=== PATIENT | male | born 1950 | race Caucasian/White ===

== ENCOUNTER 2016-12-14 21:12 | Inpatient (IN) ==
--- NOTE | 2016-12-15 00:12 | Emergency Department Note ---
Disposition Clinical Impression: Pneumonia, Orthostatic hypotension Disposition: Admitted As Inpatient Condition: Good [facility] Provider[facility] - Forms: ED Satisfaction Letter Dizziness HPI - General Chief Complaint: ED Dizziness Stated Complaint: Dizzy / Lightheaded Source: EMS Limitations: no limitations Nursing Notes Reviewed: Yes Vital Signs Reviewed: Yes - History of Present Illness HPI Narrative: Patient comes from the [place] in transfer due to abnormal workup. Per patient report he states his blood pressure dropping when he has stood up. Patient notes he has been vomiting for 3 days. Patient denies fever or chills. Patient does note he has some dizziness when standing and upon ambulation. Patient complains of shortness of breath where he is required more oxygen or the past few days. Patient states he has weaned himself down to 3 L but over the past few days he has had to go to 5 L to feel that he can breathe. Patient denies chest pain denies numbness and tingling. Patient denies dark stools - Related Data Home Medications Medication Instructions Recorded Confirmed Allopurinol [Zyloprim 100 MG] 100 mg PO DAILY 06/10/16 08/24/16 Calcitriol [Rocaltrol] 0.25 mcg PO Q48H 06/10/16 08/24/16 Cholecalciferol (D-3) [Vitamin D] 2,000 unit PO DAILY 06/10/16 08/24/16 Acetaminophen [Tylenol Arthritis] 650 mg PO Q6H PRN 07/25/16 08/24/16 Artificial Tears SOLN [Akwa Tears] 2 drop BOTH EYES BID PRN 07/25/16 08/24/16 Aspirin 81 mg PO DAILY 07/25/16 08/24/16 Metoprolol XL (24 HR) Succ [Toprol 100 mg PO DAILY 07/25/16 08/24/16 Xl] Pantoprazole Sodium [Protonix] 40 mg PO DAILY 07/25/16 08/24/16 Insulin ASPART [NovoLOG] 12 unit SQ TIDWM 08/24/16 08/24/16 Petrolatum,White [Aloe [place]] 1 appl TP BID 08/24/16 08/24/16 Previous Rx's Medication Instructions Recorded Budesonide Neb [Pulmicort Neb] 0.5 mg IH BIDR inhsol 07/08/16 Atorvastatin [Lipitor] 80 mg PO HS #30 tablet 07/26/16 Clopidogrel Bisulfate [Plavix] 75 mg PO DAILY #30 tablet 07/26/16 Acetylcysteine 10% 2 ml IH [id number] inhsol 09/03/16 Amlodipine [Norvasc] 5 mg PO DAILY tablet 09/03/16 Citalopram [CeleXA] 20 mg PO DAILY tablet 09/03/16 Docusate [Colace] 100 mg PO BID PRN #0 capsule 09/03/16 Enoxaparin [Lovenox] 40 mg SQ DAILY syringe 09/03/16 Furosemide [Lasix] 40 mg PO DAILY #0 09/03/16 Gabapentin [Neurontin] 300 mg PO DAILY #0 09/03/16 GuaiFENesin ER [Mucinex] 1,200 mg PO BID tbbp.12hr 09/03/16 Insulin Glargine [Lantus] 60 unit SQ DAILY #0 09/03/16 Ipratropium Neb [Atrovent Neb] 0.5 mg IH [id number] inhsol 09/03/16 Isosorbide MONOnitrate (24 HR) 60 mg PO DAILY tab.er.24h 09/03/16 [Imdur] LORazepam [Ativan] 1 mg PO Q4HR PRN #20 tablet 09/03/16 Levalbuterol Neb [Xopenex Neb] 0.63 mg IH [id number] vial.neb 09/03/16 Nicotine Patch [Nicoderm] 21 mg TD DAILY PRN #0 patch.td24 09/03/16 OxyCODONE Immed Rel [Roxicodone 5 10 mg PO Q4HR PRN #15 tablet 09/03/16 MG] PredniSONE 60 mg PO AD #120 tablet 09/03/16 Allergies Allergy/AdvReac Type Severity Reaction Status Date / Time cholecalciferol (vitamin D3) Allergy Difficulty Verified 08/26/16 19:16 Breathing NSAIDS (Non-Steroidal Allergy Difficulty Verified 08/26/16 19:16 Anti-Inflamma Breathing All systems ED: reviewed and negative except as stated. Past Medical History - Past Medical History Source: patient Medical history: Reports: arthritis, asthma, cancer, CHF, COPD, coronary artery disease, diabetes, GERD, GI bleed, hyperlipidemia, hypertension, malignancy, myocardial infarction, osteoporosis, peripheral artery disease, renal disease, TIA, other Surgical history: Reports: cancer surgery Psychiatric history: Reports: anxiety, depression, prior suicide attempt, previous psychiatric hospitalization, other - Social History Smoking Status: Former smoker Smokeless Tobacco Status: No Alcohol use: Reports: none Drug use: Reports: none Physical Exam - General Limitations: no limitations General appearance: alert, in no apparent distress - Head Head exam: atraumatic, normocephalic, normal inspection - Eye Eye exam: Present: normal appearance, PERRL, EOMI - ENT ENT exam: normal exam, normal oropharynx, mucous membranes moist - Neck Neck exam: Present: normal inspection, full ROM, trachea midline - Chest Chest inspection: Present: normal inspection, symmetric chest wall rise - Respiratory Respiratory exam: Present: other (Decreased air movement in the left lung field when compared to the right. No wheezing noted) - Cardiovascular Cardiovascular exam: Present: regular rate, normal rhythm, normal heart sounds - Abdominal Exam Abdominal exam: Present: soft, Non-Tender. Absent: tenderness, distention, guarding, rebound, rigidity - Extremities Exam Extremities exam: Present: normal inspection, pedal edema. Absent: tenderness - Back Exam Back exam: Present: normal inspection, full ROM. Absent: tenderness - Neurological Exam Neurological exam: Present: alert, oriented X3 - Psychiatric Psychiatric exam: Present: normal affect, normal mood - Skin Skin exam: Present: warm, dry, intact, normal color Course Vital Signs Temperature 97.8 F 12/14/16 21:24 Pulse Rate 89 12/14/16 21:24 Respiratory Rate 14 12/14/16 21:24 Blood Pressure 148/79 12/14/16 21:24 O2 Sat by Pulse Oximetry 100 12/14/16 21:24 Temperature 97.8 F 12/14/16 21:24 Pulse Rate 92 12/14/16 21:36 Respiratory Rate 14 12/14/16 21:24 Blood Pressure 138/77 12/14/16 21:36 O2 Sat by Pulse Oximetry 100 12/14/16 21:32 Oxygen Delivery Oxygen Delivery Room Air Dizziness - Differential Diagnosis Likely: benign paroxysmal positional vertigo, orthostatic hypotension, cerebrovascular accident, transient cerebral ischemia - Lab Data Lab results reviewed: Yes I reviewed the patient's lab results. Lab results narrative: Labs were performed by outside facility. CBC showed a white cell count of 17.5 , hemoglobin of 10.3, hematocrit of 32.4, platelets of 209. Segmented cells were 88.9, chemistry panel significant for sodium 134, potassium of 4.6, chloride of 97, bicarbonate of 28, glucose of 277, BUN of 54, creatinine of 2.46 , troponin was negative at 0.04, BNP was 927. Chest x-ray was performed and interpreted by radiology as right pleural effusion with associated extensive right basilar opacities appears stable to slightly increase in comparison to prior. The left lung remains relatively well aerated with minimal atelectasis versus scar at the left lung base. No pneumothorax Lab Results 12/14/16 Range/Units 23:53 Lactic Acid 1.0 (0.5-2.2) mmol/L - Radiology Data Radiology results reviewed: Yes I reviewed the patient's radiology results. - EKG Data EKG attestation: Yes I reviewed and interpreted this EKG. EKG results narrative: EKG was performed and interpreted by myself as normal sinus rhythm normal axis no acute abnormality noted Critical Care Time Total Critical Care Time: 30 Attestation: Critical care performed: Time is exclusive of separately billable procedures. Time includes: direct patient care, patient reassessment, coordination of patient care, interpretation of data (laboratory data, radiology data, and respiratory data), review of patient's medical records, medical consultation and documentation of patient care. Procedures included in critical care time: Procedures excluded from critical care time:
[2016-12-15] MEDS ORDERED: Piperacillin/Tazobactam 3.375 GM in D5% in Water (Mini-Bag+) 100 ML IVPB ONE (00:56)
[2016-12-15] MEDS ORDERED: Furosemide 40 MG/4 ML VIAL IVP ONE (00:57)
[2016-12-15] MEDS ORDERED: Vancomycin 1,500 MG in D5% in Water 250 ML IVPB ONE (00:57)
[2016-12-15] MEDS ORDERED: 0.9 % Sodium Chloride 250 ML IV ONE (01:11)
[2016-12-15] MEDS ORDERED: Acetaminophen 325 MG TABLET PO PRN (05:58)
[2016-12-15] MEDS ORDERED: Naloxone 0.4 MG/ML INJ IVP PRN (05:58)
[2016-12-15] MEDS ORDERED: Ondansetron 4 MG/2 ML VIAL IVP PRN (05:58)
[2016-12-15] MEDS ORDERED: 0.9 % Sodium Chloride 1,000 ML IVC SCH (06:00)
[2016-12-15] MEDS ORDERED: D5% in Water 1,000 ML IV PRN (06:03)
[2016-12-15] MEDS ORDERED: Dextrose Gel 15 GM PO PRN ×2 (06:03)
[2016-12-15] MEDS ORDERED: *HR* Dextrose 50 % in Water (Syg) 50 ML SYRINGE IVP PRN (06:03)
[2016-12-15] MEDS ORDERED: Hydrocortisone Sodium Succ 100 MG/2 ML VIAL IVP ONE (06:06)
--- NOTE | 2016-12-15 06:24 | Internal Med History&Physical ---
Date of Encounter: 12/15/16 Time of Encounter: 06:07 Assessment and Plan (1) Near syncope Current visit: Yes Status: Acute 1. Will cycle troponins and check Carotid Dopplers. 2. ECHO performed recently show normal EF% 3. Confirm and adjust home meds as appropriate as they nay contribute to near syncope. 4. Monitor glucose levels closely. (2) Dehydration Current visit: Yes Status: Acute 1. Will hydrate with IVF and monitor I/O, daily weights closely. 2. Wean off IVF soon when able to hydrate orally. (3) Viral gastroenteritis Current visit: Yes Status: Acute 1. Supportive measures with IVF, nausea control. 2. Oral hydration as able. (4) CKD (chronic kidney disease) stage 4, GFR 15-29 ml/min Current visit: Yes Status: Chronic 1. Monitor renal function. 2. Hold diuretics and verify home meds. 3. Consult nephrology to assist in care. (5) Diabetes mellitus Current visit: No Status: Chronic 1. Monitor glucose closely and use SSI. 2. Verify home meds and adjust insulin as necessary to maintain glucose control. Qualifiers: Diabetes mellitus type: type 2 Diabetes mellitus complication status: with kidney complications Diabetes mellitus complication detail: with chronic kidney disease Diabetes mellitus salvage determiner insulin use: with salvage determiner use Chronic kidney disease stage: stage 4 (severe) Qualified Code(s): E11.22 - Type 2 diabetes mellitus with diabetic chronic kidney disease; N18.4 - Chronic kidney disease, stage 4 (severe); Z79.4 - detention (current) use of insulin (6) DVT prophylaxis Current visit: Yes Status: Acute 1. Heparin SQ. Internal Medicine - H&P: HPI Chief complaint: near syncope; vomiting; weak Admitted From: Emergency Dept Plans for Post Hospital Care: Home History of present illness: Mr. Tang is a 66 year old male who presented to the [place] urgent care late last night with complaints of weakness, vomiting, and near syncope. He had workup performed there and was transferred to the ER for further workup and admission. Patient was seen and evaluated in the ER and admitted to hospitalist service thereafter. Workup in the ER was minimal and included an EKG lactic acid level. Lactic acid was 1.0 and EKG was essentially normal. Much of his labs performed at the [place] urgent care prior to transfer. After initial brief workup in the ER, patient was admitted to the hospitalist service. Upon my assessment of the patient, he was sleeping but easily arousable. He appears in no acute distress. I questioned him about his near syncopal spells and he states he has been feeling dizzy and lightheaded for the last 3 days at home. He has not had any true syncopel, however. He states his symptoms are worse when he stands and walks and improves when he lies flat. Symptoms started about 3 days ago. He has been complaining of some nausea and protracted vomiting and low-grade chills and fevers for last 5-6 days. He denies any diarrhea, but he has had some body aches. He has been exposed to multiple contacts. He denies any dysrhythmia history. He denies any current or recent chest pain, shortness breath, or dyspnea on exertion. Regarding his diabetes, he does not check his glucose very frequently and has had "ups and downs lately." He denies any true profound hypoglycemia, but he notes he has had several glucose readings in the 60s. He denies any true syncope. Past Med Surg Social Fam HX - Past Medical History Source: patient, old records reviewed Medical history: arthritis, asthma, cancer, CHF, COPD, coronary artery disease, diabetes, GERD, GI bleed, hyperlipidemia, hypertension, malignancy, myocardial infarction, osteoporosis, peripheral artery disease, renal disease, TIA Psychiatric history: anxiety, depression, prior suicide attempt, previous psychiatric hospitalization, other - Past Surgical History Surgical History: cancer surgery (lung ) - Social History Smoking Status: Former smoker Smokeless Tobacco Status: No Alcohol use: none Drug use: none Current living situation: Home, With Family Activity Level: Independent ambulation Recent Out of Country Travel Within the Last 8 Weeks: No - Family History Mother Living Status: Hx Family Cardiac Disorders: No Hx Family Respiratory Disorders: No Father Living Status: Hx Family Cardiac Disorders: No Hx Family Respiratory Disorders: Yes Internal Medicine - H&P: Meds Allopurinol [Zyloprim 100 MG] 100 mg PO DAILY 06/10/16 [History] Calcitriol [Rocaltrol] 0.25 mcg PO Q48H 06/10/16 [History] Cholecalciferol (D-3) [Vitamin D] 2,000 unit PO DAILY 06/10/16 [History] Budesonide Neb [Pulmicort Neb] 0.5 mg IH BIDR inhsol 07/08/16 [Rx] Acetaminophen [Tylenol Arthritis] 650 mg PO Q6H PRN 07/25/16 [History] Artificial Tears SOLN [Akwa Tears] 2 drop BOTH EYES BID PRN 07/25/16 [History] Aspirin 81 mg PO DAILY 07/25/16 [History] Metoprolol XL (24 HR) Succ [Toprol Xl] 100 mg PO DAILY 07/25/16 [History] Pantoprazole Sodium [Protonix] 40 mg PO DAILY 07/25/16 [History] Atorvastatin [Lipitor] 80 mg PO HS #30 tablet 07/26/16 [Rx] Clopidogrel Bisulfate [Plavix] 75 mg PO DAILY #30 tablet 07/26/16 [Rx] Insulin ASPART [NovoLOG] 12 unit SQ TIDWM 08/24/16 [History] Petrolatum,White [Aloe [place]] 1 appl TP BID 08/24/16 [History] Acetylcysteine 10% 2 ml IH [id number] inhsol 09/03/16 [Rx] Amlodipine [Norvasc] 5 mg PO DAILY tablet 09/03/16 [Rx] Citalopram [CeleXA] 20 mg PO DAILY tablet 09/03/16 [Rx] Docusate [Colace] 100 mg PO BID PRN #0 capsule 09/03/16 [Rx] Enoxaparin [Lovenox] 40 mg SQ DAILY syringe 09/03/16 [Rx] Furosemide [Lasix] 40 mg PO DAILY #0 09/03/16 [Rx] Gabapentin [Neurontin] 300 mg PO DAILY #0 09/03/16 [Rx] GuaiFENesin ER [Mucinex] 1,200 mg PO BID tbbp.12hr 09/03/16 [Rx] Insulin Glargine [Lantus] 60 unit SQ DAILY #0 09/03/16 [Rx] Ipratropium Neb [Atrovent Neb] 0.5 mg IH [id number] inhsol 09/03/16 [Rx] Isosorbide MONOnitrate (24 HR) [Imdur] 60 mg PO DAILY tab.er.24h 09/03/16 [Rx] LORazepam [Ativan] 1 mg PO Q4HR PRN #20 tablet 09/03/16 [Rx] Levalbuterol Neb [Xopenex Neb] 0.63 mg IH [id number] vial.neb 09/03/16 [Rx] Nicotine Patch [Nicoderm] 21 mg TD DAILY PRN #0 patch.td24 09/03/16 [Rx] OxyCODONE Immed Rel [Roxicodone 5 MG] 10 mg PO Q4HR PRN #15 tablet 09/03/16 [Rx] PredniSONE 60 mg PO AD #120 tablet 09/03/16 [Rx] Allergies cholecalciferol (vitamin D3) Allergy (Verified 08/26/16 19:16) Difficulty Breathing NSAIDS (Non-Steroidal Anti-Inflamma Allergy (Verified 08/26/16 19:16) Difficulty Breathing - Constitutional Constitutional: chills, fever(s), no lethargy, no malaise, no night sweats, no weakness - EENT Eyes: no blurry vision, no change in vision Ears: no ear pain, no tinnitus Nose, mouth and throat: no nasal congestion, no sinus pain, no sinus pressure, no sore throat - Cardiovascular Cardiovascular ROS IM: chest pain, lightheadedness, no dyspnea, no dyspnea on exertion, no edema, no orthopnea, no palpitations, no paroxysmal nocturnal dyspnea - Respiratory Respiratory: cough, dyspnea, dyspnea on exertion, no hemoptysis, no wheezing, no chest congestion, no excessive phlegm production, no change in phlegm color - Gastrointestinal Gastrointestinal: no abdominal pain, no diarrhea, no hematemesis, no hematochezia, no melena, no vomiting - Genitourinary Genitourinary ROS male: no dysuria, no flank pain, no hematuria - Musculoskeletal Musculoskeletal ROS IM: muscle cramps, myalgias, no atrophy, no joint swelling - Integumentary Integumentary IM: no rash, no jaundice - Neurological Neurological ROS: dizziness, no confusion, no focal weakness, no frequent falls , no headache(s) - Psychiatric Psychiatric: no anxiety, no depression - Endocrine Endocrine IM: no cold intolerance, no heat intolerance, no polydipsia, no polyuria - Hematologic/Lymphatic Hematologic/Lymphatic: easy bruising, no lymphadenopathy - Allergic/Immunologic Allergic/Immunologic: no wheezing, no GI upset with certain foods - Constitutional Vitals: Temp Pulse Resp BP Pulse Ox 98.1 F 73 20 133/73 97 12/15/16 04:33 12/15/16 04:33 12/15/16 04:33 12/15/16 04:33 12/15/16 04:33 General appearance: Present: cooperative, A&O X 3, pleasant, no acute distress, answers questions appropriately Exam: looks dry - Head Head exam: Present: atraumatic, normal inspection - Expanded Head Exam Head exam expanded: Absent: abrasion, contusion, general tenderness - Eye Eye exam: Present: EOMI, normal appearance, PERRL. Absent: scleral icterus Pupils: Present: normal accommodation - ENT ENT exam: Present: mucous membranes dry, normal exam, normal oropharynx - Neck Neck exam general surgery: Present: full ROM, supple, trachea midline. Absent: lymphadenopathy, tenderness - Respiratory Respiratory exam: Present: CTAB. Absent: accessory muscle use, chest wall tenderness, rales, respiratory distress, rhonchi, wheezes - Cardiovascular Cardiovascular exam: Present: RRR, +S1, +S2. Absent: distant heart sounds, rubs , systolic murmur - GI/Abdominal GI/Abdominal exam: Present: normal bowel sounds, soft. Absent: guarding, hepatomegaly, mass, rebound, splenomegaly, tenderness - Extremities Exam Extremities exam: Present: full ROM, pedal edema (1-2+), warm. Absent: calf tenderness, joint swelling - Back Exam Back exam: Absent: CVA tenderness (L), CVA tenderness (R), rash noted - Neurological Exam Neurological exam: Present: alert, CN II-XII intact, oriented X3, no focal deficits - Psychiatric Psychiatric exam: Present: normal affect, normal mood - Skin Skin exam: Present: dry, warm. Absent: petechiae, rash, vesicles Internal Med - H&P Results - Labs Labs: I reviewed his labs from the [place] urgent care and include the following: White blood cell count 17.5 Hemoglobin 10.3 Hematocrit 32.4 Platelets 209 Sodium 134 potassium 4.6 Chloride 97 Bicarbonate 28 Chloride 97 BUN 54 creatinine 2.46 Troponin 0.04 BNP 927 - EKG Data -: EKG Interpreted by Myself EKG shows normal: sinus rhythm Rate: normal - EKG Data Prior EKG available for review: no
[2016-12-15] MEDS: *HR* Heparin 5,000 UNIT/ML VIAL SQ SCH ×2 (06:38→17:40)
[2016-12-15 07:17] LABS: Basophils % 0.1 %; Eosinophils # 0.1 K/mcL (0.0-0.6); Eosinophils % 0.6 %; Hematocrit 31.1 % (37.5-50.1); Hemoglobin 9.6 g/dL (12.9-16.9); Immature Granulocytes % 1.5 % (0-4); Lymphocytes # 0.5 K/mcL (0.6-4.6); Lymphocytes % 4.4 %; Mean Corpuscular HGB Conc 30.9 g/dL (31.6-35.5); Mean Corpuscular Volume 84.3 fL (83.0-100.0); Mean Platelet Volume 9.7 fL (9.4-12.4); Monocytes # 1.1 K/mcL (0.0-1.3); Monocytes % 9.2 %; Neutrophils # 10.2 K/mcL (1.6-8.9); Platelet Count 178 K/mcL (140-400); Red Blood Count 3.69 M/mcL (4.19-5.50); Red Cell Distribution Width 15.9 % (11.5-14.5); Segmented Neutrophils % 84.2 %
[2016-12-15 07:31] LABS: Albumin 2.1 g/dL (3.5-5.0); Albumin/Globulin Ratio 0.4 (1.1-2.2); Bilirubin,Total 0.5 mg/dL (0.2-1.2); Calcium 9.7 mg/dL (8.6-10.8); Globulin 4.7 g/dL (2.4-3.5); Magnesium 1.4 mg/dL (1.6-2.6); Total Protein 6.8 g/dL (6.0-8.3)
[2016-12-15 07:48] LABS: Hemoglobin A1C 9.1 %; INR 1.2; Prothrombin Time 12.8 Seconds (9.4-12.1)
[2016-12-15 07:51] LABS: Activated Partial Thrombo Time 29.3 Seconds (26.0-36.0)
[2016-12-15] MEDS: Insulin LISPRO 300 UNITS/3 ML VIAL SQ SCH ×4 (08:10→21:30)
[2016-12-15] MEDS: Aspirin 81 MG TAB.CHEW PO SCH (08:10)
[2016-12-15] MEDS ORDERED: Magnesium Sulfate 2 GM in D5% in Water 100 ML IVPB ONE (09:14)
--- NOTE | 2016-12-15 09:40 | Nephrology Consult Note ---
Date of Encounter: 12/15/16 Time of Encounter: 09:15 Assessment and Plan (1) CKD (chronic kidney disease) stage 4, GFR 15-29 ml/min Current Visit: Yes Status: Chronic Patient with a h/o CKD stage IV and follows with Dr. Lentz in the outpatient setting. Current GFR very close to his baseline of low 30's. Clinically dehydrated on admission secondary to nausea/vomiting, poor oral intake, and continued lasix use. Continue a renal protective strategy avoiding any nephrotoxic agents and renally dosing medications. IVF discontinued as patient is taking in good oral hydration. [facility] with a CXR interpreted as extensive right basilar opacities. Consider 2 view CXR to evaluate for infectious etiology. Patient was given 1x dose of Zosyn/Vanc in ED. (2) Hypomagnesemia Current Visit: Yes Status: Acute Magnesium 1.4 today. Replete with 2g Magnesium Sulfate. Recheck Mg in AM. History of Present Illness - Reason for Consult Consult date: 12/15/16 Chronic Kidney Disease Requesting physician: Cristian Garcia - Chief Complaint CKD - History of Present Illness Mr. Tang is a 66-year-old gentleman with a past medical history of chronic kidney disease stage IV who follows with Dr. Lentz, insulin-dependent diabetes mellitus, hypertension, heart failure with preserved ejection fraction , lung cancer status post lobectomy who was transferred from the [place] where he presented for complaints of weakness/vomiting/near syncope. Patient states that he has been nauseated and vomiting for approximately 3 days and notes that his blood pressure was dropping upon standing. He does have baseline chronic respiratory failure requiring oxygen, but states he has had to increase his baseline oxygen demand over the past several days. He denies fevers or chills, chest pain, abdominal pain or dysuria. Nephrology consulted for history of CKD and assistance with care. Patient resting comfortably in bed. Tolerated his breakfast with no nausea or vomiting. States his breathing has mildly improved. He has no complaints/concerns at this time. Past Med Surg Social Fam HX - Past Medical History Medical history: arthritis, asthma, cancer, CHF, COPD, coronary artery disease, diabetes, GERD, GI bleed, hyperlipidemia, hypertension, malignancy, myocardial infarction, osteoporosis, peripheral artery disease, renal disease, TIA Psychiatric history: anxiety, depression, prior suicide attempt, previous psychiatric hospitalization - Past Surgical History Surgical History: cancer surgery (lung ) - Social History Smoking Status: Former smoker Smokeless Tobacco Status: No Alcohol use: none Drug use: none - Family History Mother Living Status: Hx Family Cardiac Disorders: No Hx Family Respiratory Disorders: No Father Living Status: Hx Family Cardiac Disorders: No Hx Family Respiratory Disorders: Yes Medications and Allergies Allopurinol [Zyloprim 100 MG] 100 mg PO DAILY 06/10/16 [History] Calcitriol [Rocaltrol] 0.25 mcg PO DAILY 06/10/16 [History] Aspirin 81 mg PO DAILY 07/25/16 [History] Atorvastatin [Lipitor] 80 mg PO HS #30 tablet 07/26/16 [Rx] Clopidogrel Bisulfate [Plavix] 75 mg PO DAILY #30 tablet 07/26/16 [Rx] Acetylcysteine 10% 2 ml IH [id number] inhsol 09/03/16 [Rx] Citalopram [CeleXA] 20 mg PO DAILY tablet 09/03/16 [Rx] Gabapentin [Neurontin] 300 mg PO DAILY #0 09/03/16 [Rx] Ipratropium Neb [Atrovent Neb] 0.5 mg IH [id number] inhsol 09/03/16 [Rx] Isosorbide MONOnitrate (24 HR) [Imdur] 60 mg PO DAILY tab.er.24h 09/03/16 [Rx] Levalbuterol Neb [Xopenex Neb] 0.63 mg IH [id number] vial.neb 09/03/16 [Rx] Calcium Carbonate/Vitamin D3 [Calcium 500 + Vit D Caplet] 1 each PO BID [History] Furosemide [Lasix] 40 mg PO BID 12/15/16 [History] Insulin ASPART [NovoLOG] 20 unit SQ TID 12/15/16 [History] Insulin Glargine,Hum.rec.anlog [Lantus Sol[place]] 85 unit SQ DAILY 12/15/16 [ History] Magic Mouthwash 15 ml PO QID PRN 12/15/16 [History] Meclizine [Antivert] 25 mg PO TID PRN 12/15/16 [History] Metoprolol Succinate 200 mg PO DAILY 12/15/16 [History] Mupirocin [Bactroban Oint] 1 appl TP BID PRN 12/15/16 [History] PredniSONE [[place]] 15 mg PO DAILY 12/15/16 [History] Allergies cholecalciferol (vitamin D3) Allergy (Verified 12/15/16 09:39) Difficulty Breathing NSAIDS (Non-Steroidal Anti-Inflamma Allergy (Verified 12/15/16 09:39) Difficulty Breathing Review of Systems All Systems: reviewed and no additional remarkable complaints except as stated Exam - Vital Signs Vital signs: Initial Vital Signs Temp Pulse Resp BP Pulse Ox 97.8 F 89 14 148/79 100 12/14/16 21:24 12/14/16 21:24 12/14/16 21:24 12/14/16 21:24 12/14/16 21:24 Vital Signs - Last 8 Hours Temp Pulse Resp BP Pulse Ox 12/15/16 07:08 98.4 F 74 16 130/71 95 12/15/16 04:33 98.1 F 73 20 133/73 97 12/15/16 01:55 97.8 F 76 20 160/84 96 Intake and Output 12/14/16 12/15/16 12/15/16 23:59 07:59 15:59 Intake Total 250 / 250 Output Total 500 / 500 Balance -250 / -250 Intake: IV Fluids 250 / 250 0.9 % Sodium Chloride 250 250 / 250 ML @ Wide Open IV BOLUS ONE Rx#:[id number] Output: Urine 500 / 500 Other: Weight 98.52 kg Blood Glucose* 221 Patient Weight 12/15/16 23:59 Weight 98.52 kg - General Appearance Exam: General: Patient is alert and in no acute distress HEENT: Normocephalic atraumatic, pupils are equal round and reactive to light and accommodation, tympanic membrane is intact, nares is patent, mucous membranes moist, throat is not injected, no JVD, trachea is midline Cardiovascular: Regular rate and rhythm without murmur Respiratory: Lungs are clear to auscultation bilaterally, no wheezing, rhonchi, rales Abdomen: Soft, nontender, nondistended, positive bowel sounds in all 4 quadrants Extremities: Warm, dry, 1+ LE edema Neuro: A&Ox3, speech is appropriate, cranial nerves II through XII are normal as tested Results - Lab Results 12/15/16 07:01 12/15/16 07:01 Most recent lab results Calcium 9.7 mg/dL (8.6-10.8) 12/15/16 07:01 Magnesium 1.4 mg/dL (1.6-2.6) L 12/15/16 07:01 Consult Discharge Plan - Plan Referrals: [facility] [Outside]
--- NOTE | 2016-12-15 11:21 | Electrocardiograph Report ---
[facility] Test Date: 2016-12-14 Pat Name: JESUS QUINTEROS Department: 103 Room: 2A38 Gender: M [employer]: EZRA : 1950 Requested By: Amadeo Alvarez Order Number: [id number] Reading MD: Birgit Hollins Measurements Intervals [place] Rate: 87 P: 20 MA: 150 QRS: -11 QRSD: 87 T: 30 QT: 342 QTc: 386 Interpretive Statements SINUS RHYTHM Electronically Signed On 12-15-16 11:20:29 EST by Birgit Hollins
--- NOTE | 2016-12-15 11:30 | Electrocardiograph Report ---
[facility] Test Date: 2016-12-15 Pat Name: Rusty Tang Department: 112 Room: 38 Gender: M Chiropractic Physician: [id number] : 1950 Requested By: Cristian Garcia Order Number: [id number] Reading MD: Birgit Hollins Measurements Intervals [place] Rate: 82 P: [place]: 0 QRS: -7 QRSD: 90 T: 7 QT: 347 QTc: 386 Interpretive Statements NORMAL SINUS RHYTHM ARTIFACT LIMITS INTERPRETATION Electronically Signed On 12-15-16 11:29:10 EST by Birgit Hollins
--- NOTE | 2016-12-15 14:51 | Internal Med Progress Note ---
Date of Encounter: 12/15/16 Time of Encounter: 10:50 - Assessment and plan (1) Near syncope Current Visit: Yes Status: Acute (2) Orthostatic hypotension Current Visit: Yes Status: Acute Assessment and plan: Possibly secondary to use of multiple antihypertensives, meclizine in the setting of gastroenteritis with dehydration Will restart home dose at lower doses Patient already received IVF hydration, I expect some improvement BP is now WNL (3) Viral gastroenteritis Current Visit: Yes Status: Acute Assessment and plan: Improved Continue supportive care (4) CKD (chronic kidney disease) stage 4, GFR 15-29 ml/min Current Visit: Yes Status: Chronic Assessment and plan: Chronic, stable, renal team eval appreciated (5) CAD (coronary artery disease) Current Visit: No Status: Chronic Assessment and plan: Stable, resume home meds EKG NSR Qualifiers: Coronary Disease-Associated Artery/Lesion type: [place] artery [place] vs. transplanted heart: [place] heart Associated angina: without angina Qualified Code(s): I25.10 - Atherosclerotic heart disease of [place] coronary artery without angina pectoris (6) DYLAN (obstructive sleep apnea) Current Visit: Yes Status: Chronic Assessment and plan: CPAP at night (7) PTSD (post-traumatic stress disorder) Current Visit: Yes Status: Chronic Assessment and plan: Resume home meds (8) CHF (congestive heart failure) Current Visit: Yes Status: Chronic Assessment and plan: Chronic CHFpEF, no current evidence of fluid overload, BNP elevated possibly from CKD IV Patient has no edema, lungs are clear Qualifiers: Congestive heart failure type: diastolic Congestive heart failure chronicity: unspecified congestive heart failure chronicity Qualified Code(s) : I50.30 - Unspecified diastolic (congestive) heart failure (9) COPD (chronic obstructive pulmonary disease) Current Visit: Yes Status: Chronic Qualifiers: COPD type: unspecified COPD Qualified Code(s): J44.9 - Chronic obstructive pulmonary disease, unspecified (10) Diabetes mellitus Current Visit: Yes Status: Chronic Assessment and plan: Basal, prandial and supplemental insulin FS ACHS Qualifiers: Diabetes mellitus type: type 2 Diabetes mellitus complication status: with kidney complications Diabetes mellitus complication detail: with chronic kidney disease Diabetes mellitus [facility] insulin use: with truck terminal manager use Chronic kidney disease stage: stage 4 (severe) Qualified Code(s): E11.22 - Type 2 diabetes mellitus with diabetic chronic kidney disease; N18.4 - Chronic kidney disease, stage 4 (severe); Z79.4 - [facility] (current) use of insulin (11) Hyperlipidemia Current Visit: Yes Status: Chronic Assessment and plan: Resume home meds Qualifiers: Hyperlipidemia type: mixed hyperlipidemia Qualified Code(s): E78.2 - Mixed hyperlipidemia (12) Hypertension Current Visit: No Status: Chronic Qualifiers: Hypertension type: essential hypertension Qualified Code(s): I10 - Essential (primary) hypertension (13) Lung cancer Current Visit: Yes Status: Chronic Assessment and plan: Chronic, stable Obtain CXR as patient states his CXR was "worse than usual in the [place]. There is no documentation of this Qualifiers: Laterality: right Lung location: unspecified part of lung Qualified Code( s): C34.91 - Malignant neoplasm of unspecified part of right bronchus or lung (14) Obesity Current Visit: Yes Status: Chronic Qualifiers: Obesity type: with alveolar hypoventilation Obesity severity: morbid Qualified Code(s): E66.2 - Morbid (severe) obesity with alveolar hypoventilation - Subjective Interval history: Mr. Tang is a 66-year-old M with PMH of CKD IV, DM, HTN, CHFpEF, lung cancer status post lobectomy, chronic respiratory failure on home O2. He was transferred from the [place] for complains of gastroenteritis, and ner syncope His orthostatic vital signs have been checked and significant for orthostasis His renal function is at baseline Seen this morning with no new complains Patient stated to me that his CXR at [place] was "worse than usual". He does not have any chest symptoms - Constitutional Vitals: Temp Pulse Resp BP Pulse Ox 97.7 F 76 18 130/74 96 12/15/16 10:45 12/15/16 10:45 12/15/16 10:45 12/15/16 10:45 12/15/16 10:45 General appearance: Present: cooperative, A&O X 3, pleasant, no acute distress, answers questions appropriately - Head Head exam: Present: atraumatic, normocephalic - Eye Eye exam: Present: PERRL, conjuntiva pink, sclera anicteric Pupils: Present: PERRL - Neck Neck exam general surgery: Present: supple, trachea midline. Absent: lymphadenopathy - Respiratory Respiratory exam: Present: CTAB. Absent: accessory muscle use, rales, rhonchi, wheezes Additional comments: Diminished breath sounds on the right lung zone - Cardiovascular Cardiovascular exam: Present: RRR, +S1, +S2. Absent: diastolic murmur, gallop, rubs, systolic murmur - GI/Abdominal GI/Abdominal exam: Present: normal bowel sounds, soft, no peritoneal signs. Absent: distended, tenderness - Extremities Exam Extremities exam: Present: warm, radial pulses palpable and symetrical. Absent : calf tenderness, cyanotic, pedal edema - Neurological Exam Neurological exam: Present: CN II-XII intact, oriented X3, no focal deficits. Absent: pronater drift, facial droop, speech deficit - Skin Skin exam: Present: dry, intact Internal Medicine: Result - Labs CBC & Chem 7: 12/15/16 07:01 12/15/16 07:01 Labs: Short CBC 12/15/16 Range/Units 07:01 WBC 12.1 H (4.3-11.1) K/mcL Hgb 9.6 L (12.9-16.9) g/dL Hct 31.1 L (37.5-50.1) % Plt Count 178 (140-400) K/mcL Neutrophils # 10.2 H (1.6-8.9) K/mcL BMP 12/15/16 07:01 Sodium 137 Potassium 4.0 Chloride 97 L Carbon Dioxide 29 BUN 52 H Creatinine 2.29 H Glucose 223 H Calcium 9.7 Cardiac Enzymes 12/15/16 12/15/16 Range/Units 07:01 13:33 Troponin I 0.01 0.01 (0-0.03) ng/mL Liver Function 12/15/16 Range/Units 07:01 Total Bilirubin 0.5 (0.2-1.2) mg/dL AST 11 (5-34) Units/L ALT 14 (0-55) Units/L Alkaline Phosphatase 60 (38-126) Units/L Albumin 2.1 L (3.5-5.0) g/dL - ABG Interpretation ABG results: PT/INR, D-dimer PT 12.8 Seconds (9.4-12.1) H 12/15/16 07:01 Consult Discharge Plan - Plan Referrals: [facility] [Outside]
[2016-12-15] MEDS ORDERED: Acetylcysteine 10% 4 ML INHSOL IH SCH (15:00)
[2016-12-15] MEDS ORDERED: NIFEdipine XL (24 HR) 30 MG TAB.ER.24 PO STA (20:43)
[2016-12-15] MEDS ORDERED: Metoprolol XL (24 HR) Succ 50 MG TAB.ER.24H PO STA (20:43)
[2016-12-15] MEDS ORDERED: Isosorbide MONOnitrate (24 HR) 30 MG TAB.ER.24H PO STA (21:09)
[2016-12-15] MEDS: Furosemide 40 MG TABLET PO SCH (21:30)
[2016-12-15] MEDS: VITAMIN D3 PO SCH (21:31)
[2016-12-15] MEDS: CALCIUM CARBONATE PO SCH (21:31)
[2016-12-16 05:44] LABS: Basophils % 0.2 %; Eosinophils # 0.2 K/mcL (0.0-0.6); Eosinophils % 2.1 %; Hematocrit 30.3 % (37.5-50.1); Hemoglobin 9.5 g/dL (12.9-16.9); Immature Granulocytes % 0.9 % (0-4); Lymphocytes # 0.6 K/mcL (0.6-4.6); Lymphocytes % 5.8 %; Mean Corpuscular HGB Conc 31.4 g/dL (31.6-35.5); Mean Corpuscular Hemoglobin 26.5 pg (28.0-33.3); Mean Corpuscular Volume 84.6 fL (83.0-100.0); Mean Platelet Volume 10.3 fL (9.4-12.4); Monocytes # 0.9 K/mcL (0.0-1.3); Monocytes % 9.3 %; Neutrophils # 7.9 K/mcL (1.6-8.9); Platelet Count 196 K/mcL (140-400); Red Blood Count 3.58 M/mcL (4.19-5.50); Red Cell Distribution Width 15.9 % (11.5-14.5); Segmented Neutrophils % 81.7 %
[2016-12-16] MEDS: *HR* Heparin 5,000 UNIT/ML VIAL SQ SCH ×2 (05:50→16:52)
[2016-12-16 05:56] LABS: Calcium 9.3 mg/dL (8.6-10.8); Potassium 3.7 mEq/L (3.5-4.5)
[2016-12-16] MEDS: Isosorbide MONOnitrate (24 HR) 60 MG TAB.ER.24H PO SCH (08:25)
[2016-12-16] MEDS: Furosemide 40 MG TABLET PO SCH ×2 (08:25→21:07)
[2016-12-16] MEDS: Aspirin 81 MG TAB.CHEW PO SCH (08:26)
[2016-12-16] MEDS: Insulin LISPRO 300 UNITS/3 ML VIAL SQ SCH ×5 (08:26→21:09)
[2016-12-16] MEDS: predniSONE 10 MG TABLET PO SCH (08:26)
[2016-12-16] MEDS: CALCIUM CARBONATE PO SCH ×2 (08:26→21:19)
[2016-12-16] MEDS: VITAMIN D3 PO SCH ×2 (08:26→21:19)
[2016-12-16] MEDS: Gabapentin 300 MG CAPSULE PO SCH (08:26)
[2016-12-16] MEDS ORDERED: Metoprolol XL (24 HR) Succ 50 MG TAB.ER.24H PO SCH ×2 (09:00→17:26)
--- NOTE | 2016-12-16 09:31 | Carotid Imaging Report ---
Carotid Duplex Patient Name:Rusty Tang Order Number:[id number] Procedure Date:12/15/2016 Date:8Age:66 yrs Gender:Male Rt.BP:159 / 82 mmHgHeart Rate: Location:[facility] Room #: 2A38 Bicycle Courier:Stephie Guerra, IGNACIO Referring MD:Cristian Garcia MD structures mechanic:[facility] Reading MD:Ivan Mendes MD , FACS Primary Indications:Syncope and collapse Risk Factors Yes/No Hypertension Yes Diabetes Yes Hypercholesterolemia Yes Hx of TIA Yes Smoker Previous Yes Impressions: Findings: Bilateral carotid systems are essentially normal. Recommendations: Test completed on 12/15/2016 at 7:30:00 pm. Findings Carotid Duplex: Right: The right proximal common carotid artery has a PSV of 84 cm/s and a EDV of 17 cm/s. The right mid common carotid artery has a PSV of 73 cm/s and a EDV of 15 cm/s. The right distal common carotid artery has a PSV of 81 cm/s and a EDV of 19 cm/s. There is nonstenotic plaque in the right bifurcation with a PSV of 37 cm/s and a EDV of 14 cm/s. There is smooth heterogeneous plaque. The right proximal internal carotid artery has a PSV of 82 cm/s and a EDV of 15 cm/s. The right mid internal carotid artery has a PSV of 75 cm/s and a EDV of 24 cm/s. The right distal internal carotid artery has a PSV of 75 cm/s and a EDV of 26 cm/s. The right eca has a PSV of 86 cm/s and a EDV of 11 cm/s. The right vertebral artery has a PSV of 45 cm/s and a EDV of 17 cm/s. There is antegrade spectral Doppler flow patterns. Left: The left proximal common carotid artery has a PSV of 72 cm/s and a EDV of 16 cm/s. The left mid common carotid artery has a PSV of 68 cm/s and a EDV of 19 cm/s. The left distal common carotid artery has a PSV of 72 cm/s and a EDV of 20 cm/s. There is nonstenotic plaque in the left bifurcation with a PSV of 53 cm/s and a EDV of 17 cm/s. There is smooth heterogeneous plaque. The left proximal internal carotid artery has a PSV of 81 cm/s and a EDV of 25 cm/s. The left mid internal carotid artery has a PSV of 91 cm/s and a EDV of 30 cm/s. The left distal internal carotid artery has a PSV of 97 cm/s and a EDV of 27 cm/s. The left eca has a PSV of 62 cm/s and a EDV of 12 cm/s. The left vertebral artery has a PSV of 35 cm/s and a EDV of 12 cm/s. Prior Study: No prior study available for comparison. Carotid Results Right PSV EDV Assessment Proximal CCA 84 17 Mid CCA 73 15 Distal CCA 81 19 Bifurcation 37 14 Non Stenotic Plaque Proximal ICA 82 15 Mid ICA 75 24 Distal ICA 75 26 ECA 86 11 Vertebral Artery 45 17 Antegrade Flow Left PSV EDV Assessment Proximal CCA 72 16 Mid CCA 68 19 Distal CCA 72 20 Bifurcation 53 17 Non Stenotic Plaque Proximal ICA 81 25 Mid ICA 91 30 Distal ICA 97 27 ECA 62 12 Vertebral Artery 35 12 Ratio's Right ICA/CCA Ratio: 1.12 ICA/CCA Values: 82/73 Left ICA/CCA Ratio: 1.43 ICA/CCA Values: 97/68 Updated by Ivan Mendes MD, FACS on 12/16/2016 9:26:09 AM Ivan Mendes MD electronically signed on 12/16/2016 9:26:37 AM with status of Final
[2016-12-16 10:13] LABS: Magnesium 1.7 mg/dL (1.6-2.6)
--- NOTE | 2016-12-16 10:13 | Nephrology Progress Note ---
Date of Encounter: 12/16/16 Time of Encounter: 10:00 - Assessment and Plan (1) CKD (chronic kidney disease) stage 4, GFR 15-29 ml/min Current Visit: Yes Status: Chronic Patient's serum creatinine and GFR improved with hydration overnight. Currently taking in good oral hydration. Urine output remains adequate. Currently back to his baseline GFR. Continue a renal protective strategy. We will continue to monitor patient's daily labs, please call with any questions or concerns. (2) Hypomagnesemia Current Visit: Yes Status: Resolved 1.7 today after 2 g yesterday. Will replete again today with 2 g magnesium sulfate. (3) Orthostatic hypotension Current Visit: Yes Status: Resolved Subjective Interval history: Patient seen and examined at the bedside. Patient states that he is feeling a little better today. He is tolerating his diet without nausea or vomiting. He has no complaints/concerns at this time. Making good UOP. Objective - Vital Signs Vital signs: Vital Signs Temp Pulse Resp BP Pulse Ox 12/16/16 06:56 98.3 F 89 16 128/72 97 12/16/16 03:23 98.5 F 88 18 124/69 96 12/15/16 23:32 98.3 F 90 20 164/82 99 12/15/16 20:17 98.2 F 70 18 204/96 97 12/15/16 15:30 98.1 F 80 16 159/82 97 12/15/16 10:45 97.7 F 76 18 130/74 96 Intake and Output 12/15/16 12/16/16 12/16/16 23:59 07:59 15:59 Intake Total 1000 / 1000 240 / 240 Output Total 300 / 300 300 / 300 Balance 700 / 700 -300 / -300 240 / 240 Intake: IV Fluids 1000 / 1000 0.9 % Sodium Chloride 1, 1000 / 1000 000 ML @ 100 mls/hr IVC . Q10H HIMANSHU Rx#:[id number] Oral 240 / 240 Output: Urine 300 / 300 300 / 300 Other: Meal Breakfast Percent of Meal Consumed 75% Weight 98.2 kg Blood Glucose* 322 157 Patient Weight 12/16/16 23:59 Weight 98.2 kg - General Appearance Exam: General: Patient is alert and in no acute distress HEENT: Normocephalic atraumatic, pupils are equal round and reactive to light and accommodation, tympanic membrane is intact, nares is patent, mucous membranes moist, throat is not injected, no JVD, trachea is midline Cardiovascular: Regular rate and rhythm without murmur Respiratory: Lungs diminished breath sounds right lung field Abdomen: Soft, nontender, obese, positive bowel sounds in all 4 quadrants Extremities: Warm, dry, no edema Neuro: A&Ox3, speech is appropriate, cranial nerves II through XII are normal as tested - Lab 12/16/16 05:06 12/16/16 05:06 Most recent lab results Calcium 9.3 mg/dL (8.6-10.8) 12/16/16 05:06 Magnesium 1.4 mg/dL (1.6-2.6) L 12/15/16 07:01 Consult Discharge Plan - Plan Referrals: [facility] [Outside]
[2016-12-16] MEDS ORDERED: Magnesium Sulfate 2 GM in D5% in Water 100 ML IVPB ONE (10:17)
[2016-12-16] MEDS ORDERED: 0.9 % Sodium Chloride 500 ML IVC ONE (17:26)
--- NOTE | 2016-12-16 17:30 | Internal Med Progress Note ---
Date of Encounter: 12/16/16 Time of Encounter: 11:00 - Assessment and plan (1) Near syncope Current Visit: Yes Status: Acute (2) Orthostatic hypotension Current Visit: Yes Status: Resolved Assessment and plan: Possibly secondary to use of multiple antihypertensives, meclizine in the setting of gastroenteritis with dehydration Will adjust medications 500cc bolus given Fall precautions (3) Viral gastroenteritis Current Visit: Yes Status: Acute Assessment and plan: Improved Continue supportive care (4) CKD (chronic kidney disease) stage 4, GFR 15-29 ml/min Current Visit: Yes Status: Chronic Assessment and plan: Chronic, stable, renal team eval appreciated (5) CAD (coronary artery disease) Current Visit: No Status: Chronic Assessment and plan: Stable, resume home meds EKG NSR Qualifiers: Coronary Disease-Associated Artery/Lesion type: [place] artery [place] vs. transplanted heart: [place] heart Associated angina: without angina Qualified Code(s): I25.10 - Atherosclerotic heart disease of [place] coronary artery without angina pectoris (6) DYLAN (obstructive sleep apnea) Current Visit: Yes Status: Chronic Assessment and plan: CPAP at night (7) PTSD (post-traumatic stress disorder) Current Visit: Yes Status: Chronic Assessment and plan: Resume home meds (8) CHF (congestive heart failure) Current Visit: Yes Status: Chronic Assessment and plan: Chronic CHFpEF, no current evidence of fluid overload, BNP elevated possibly from CKD IV Patient has no edema, lungs are clear Qualifiers: Congestive heart failure type: diastolic Congestive heart failure chronicity: unspecified congestive heart failure chronicity Qualified Code(s) : I50.30 - Unspecified diastolic (congestive) heart failure (9) COPD (chronic obstructive pulmonary disease) Current Visit: Yes Status: Chronic Qualifiers: COPD type: unspecified COPD Qualified Code(s): J44.9 - Chronic obstructive pulmonary disease, unspecified (10) Diabetes mellitus Current Visit: Yes Status: Chronic Assessment and plan: Basal, prandial and supplemental insulin FS ACHS Qualifiers: Diabetes mellitus type: type 2 Diabetes mellitus complication status: with kidney complications Diabetes mellitus complication detail: with chronic kidney disease Diabetes mellitus [facility] insulin use: with .net developer use Chronic kidney disease stage: stage 4 (severe) Qualified Code(s): E11.22 - Type 2 diabetes mellitus with diabetic chronic kidney disease; N18.4 - Chronic kidney disease, stage 4 (severe); Z79.4 - [facility] (current) use of insulin (11) Hyperlipidemia Current Visit: Yes Status: Chronic Assessment and plan: Resume home meds Qualifiers: Hyperlipidemia type: mixed hyperlipidemia Qualified Code(s): E78.2 - Mixed hyperlipidemia (12) Hypertension Current Visit: No Status: Chronic Qualifiers: Hypertension type: essential hypertension Qualified Code(s): I10 - Essential (primary) hypertension (13) Lung cancer Current Visit: Yes Status: Chronic Assessment and plan: Chronic, stable CXR done showed no new findings from prior X-rays Qualifiers: Laterality: right Lung location: unspecified part of lung Qualified Code( s): C34.91 - Malignant neoplasm of unspecified part of right bronchus or lung (14) Obesity Current Visit: Yes Status: Chronic Qualifiers: Obesity type: with alveolar hypoventilation Obesity severity: morbid Qualified Code(s): E66.2 - Morbid (severe) obesity with alveolar hypoventilation - Subjective Interval history: Mr. Tang is a 66-year-old M with PMH of CKD IV, DM, HTN, CHFpEF, lung cancer status post lobectomy, chronic respiratory failure on home O2. He was transferred from the [place] 10/14 for complains of gastroenteritis, and pre- syncope His orthostatic vital signs continue to be significant for orthostatic hypotension Today BP lying down is 118/68 and standing was 84/48 His renal function is at baseline He still feels dizzy when he gets up His renal function is stable at baseline Will give 500cc bolus Gastroenteritis has resolved CXR done revealed no new findings He has been afebrile, no leukocytosis, no signs of sepsis or SIRS Will further decrease his BP medications to allow room for improvement in orthostasis - Constitutional Vitals: Temp Pulse Resp BP Pulse Ox 97.9 F 77 16 130/75 97 12/16/16 15:30 12/16/16 15:30 12/16/16 15:30 12/16/16 15:30 12/16/16 15:30 General appearance: Present: cooperative, A&O X 3, pleasant, no acute distress, answers questions appropriately - Head Head exam: Present: atraumatic, normocephalic - Eye Eye exam: Present: PERRL, conjuntiva pink, sclera anicteric Pupils: Present: PERRL - Neck Neck exam general surgery: Present: supple, trachea midline. Absent: lymphadenopathy - Respiratory Respiratory exam: Present: CTAB. Absent: accessory muscle use, rales, rhonchi, wheezes - Cardiovascular Cardiovascular exam: Present: RRR, +S1, +S2. Absent: diastolic murmur, gallop, rubs, systolic murmur - GI/Abdominal GI/Abdominal exam: Present: normal bowel sounds, soft, no peritoneal signs. Absent: distended, tenderness - Extremities Exam Extremities exam: Present: warm, radial pulses palpable and symetrical. Absent : calf tenderness, cyanotic, pedal edema - Neurological Exam Neurological exam: Present: CN II-XII intact, oriented X3, no focal deficits. Absent: pronater drift, facial droop, speech deficit - Skin Skin exam: Present: dry, intact Internal Medicine: Result - Labs CBC & Chem 7: 12/16/16 05:06 12/16/16 05:06 Labs: Short CBC 12/16/16 Range/Units 05:06 WBC 9.7 (4.3-11.1) K/mcL Hgb 9.5 L (12.9-16.9) g/dL Hct 30.3 L (37.5-50.1) % Plt Count 196 (140-400) K/mcL Neutrophils # 7.9 (1.6-8.9) K/mcL BMP 12/16/16 05:06 Sodium 142 Potassium 3.7 Chloride 102 Carbon Dioxide 27 BUN 51 H Creatinine 2.02 H Glucose 148 H Calcium 9.3 Cardiac Enzymes 12/15/16 Range/Units 19:46 Troponin I 0.01 (0-0.03) ng/mL - ABG Interpretation ABG results: PT/INR, D-dimer PT 12.8 Seconds (9.4-12.1) H 12/15/16 07:01 Consult Discharge Plan - Plan Referrals: [facility] [Outside]
[2016-12-16] MEDS: Insulin DETEMIR 100 UNIT/ML X5UNITS SQ SCH (21:08)
[2016-12-17 06:05] LABS: Basophils % 0.2 %; Eosinophils # 0.2 K/mcL (0.0-0.6); Eosinophils % 2.6 %; Hematocrit 29.9 % (37.5-50.1); Hemoglobin 9.5 g/dL (12.9-16.9); Immature Granulocytes % 1.5 % (0-4); Lymphocytes # 0.7 K/mcL (0.6-4.6); Lymphocytes % 8.7 %; Mean Corpuscular HGB Conc 31.8 g/dL (31.6-35.5); Mean Corpuscular Hemoglobin 26.5 pg (28.0-33.3); Mean Corpuscular Volume 83.5 fL (83.0-100.0); Mean Platelet Volume 9.5 fL (9.4-12.4); Monocytes # 0.9 K/mcL (0.0-1.3); Monocytes % 10.8 %; Neutrophils # 6.1 K/mcL (1.6-8.9); Platelet Count 194 K/mcL (140-400); Red Blood Count 3.58 M/mcL (4.19-5.50); Red Cell Distribution Width 15.6 % (11.5-14.5); Segmented Neutrophils % 76.2 %
[2016-12-17] MEDS: *HR* Heparin 5,000 UNIT/ML VIAL SQ SCH (06:15)
[2016-12-17 06:24] LABS: Calcium 9.5 mg/dL (8.6-10.8); Potassium 4.1 mEq/L (3.5-4.5)
[2016-12-17] MEDS: Insulin LISPRO 300 UNITS/3 ML VIAL SQ SCH ×4 (08:13→11:08)
[2016-12-17] MEDS: Aspirin 81 MG TAB.CHEW PO SCH (08:14)
[2016-12-17] MEDS: Furosemide 40 MG TABLET PO SCH (08:14)
[2016-12-17] MEDS: Isosorbide MONOnitrate (24 HR) 60 MG TAB.ER.24H PO SCH (08:14)
[2016-12-17] MEDS: Gabapentin 300 MG CAPSULE PO SCH (08:14)
[2016-12-17] MEDS: predniSONE 10 MG TABLET PO SCH (08:15)
[2016-12-17] MEDS: Insulin DETEMIR 100 UNIT/ML X5UNITS SQ SCH (09:04)
[2016-12-17] MEDS: CALCIUM CARBONATE PO SCH (09:04)
[2016-12-17] MEDS: VITAMIN D3 PO SCH (09:04)
[2016-12-17 11:08] VITALS: BP 162/98
[2016-12-17] MEDS ORDERED: Insulin LISPRO 300 UNITS/3 ML VIAL SQ SCH (12:36)
[2016-12-17] MEDS ORDERED: Ipratropium/Albuterol Neb 3 ML IH PRN (12:36)
[2016-12-17] MEDS ORDERED: Metoprolol XL (24 HR) Succ 25 MG TAB.ER.24H PO ONE (14:48)
--- NOTE | 2016-12-17 14:54 | Discharge Summary ---
Date of Encounter: 12/17/16 Time of Encounter: 13:00 - Discharge Diagnosis (1) Near syncope Priority: Primary Status: Resolved (2) Orthostatic hypotension Priority: Primary Status: Resolved (3) Viral gastroenteritis Priority: Primary Status: Resolved (4) CKD (chronic kidney disease) stage 4, GFR 15-29 ml/min Priority: Secondary Status: Chronic (5) CAD (coronary artery disease) Priority: Secondary Status: Chronic Qualifiers: Coronary Disease-Associated Artery/Lesion type: seminole artery [place] vs. transplanted heart: seminole heart Associated angina: without angina Qualified Code(s): I25.10 - Atherosclerotic heart disease of seminole coronary artery without angina pectoris (6) DYLAN (obstructive sleep apnea) Priority: Secondary Status: Chronic (7) PTSD (post-traumatic stress disorder) Priority: Secondary Status: Chronic (8) CHF (congestive heart failure) Priority: Secondary Status: Chronic Qualifiers: Congestive heart failure type: diastolic Congestive heart failure chronicity: unspecified congestive heart failure chronicity Qualified Code(s) : I50.30 - Unspecified diastolic (congestive) heart failure (9) COPD (chronic obstructive pulmonary disease) Priority: Secondary Status: Chronic Qualifiers: COPD type: unspecified COPD Qualified Code(s): J44.9 - Chronic obstructive pulmonary disease, unspecified (10) Diabetes mellitus Priority: Secondary Status: Chronic Qualifiers: Diabetes mellitus type: type 2 Diabetes mellitus complication status: with kidney complications Diabetes mellitus complication detail: with chronic kidney disease Diabetes mellitus care home insulin use: with care home use Chronic kidney disease stage: stage 4 (severe) Qualified Code(s): E11.22 - Type 2 diabetes mellitus with diabetic chronic kidney disease; N18.4 - Chronic kidney disease, stage 4 (severe); Z79.4 - termite helper (current) use of insulin (11) Hyperlipidemia Priority: Secondary Status: Chronic Qualifiers: Hyperlipidemia type: mixed hyperlipidemia Qualified Code(s): E78.2 - Mixed hyperlipidemia (12) Hypertension Priority: Secondary Status: Chronic Qualifiers: Hypertension type: essential hypertension Qualified Code(s): I10 - Essential (primary) hypertension (13) Lung cancer Priority: Secondary Status: Chronic Qualifiers: Laterality: right Lung location: unspecified part of lung Qualified Code( s): C34.91 - Malignant neoplasm of unspecified part of right bronchus or lung (14) Obesity Priority: Secondary Status: Chronic Qualifiers: Obesity type: with alveolar hypoventilation Obesity severity: morbid Qualified Code(s): E66.2 - Morbid (severe) obesity with alveolar hypoventilation - Discharge Medications Home Medications: Allopurinol [Zyloprim 100 MG] 100 mg PO DAILY 06/10/16 [History] Calcitriol [Rocaltrol] 0.25 mcg PO DAILY 06/10/16 [History] Aspirin 81 mg PO DAILY 07/25/16 [History] Atorvastatin [Lipitor] 80 mg PO HS #30 tablet 07/26/16 [Rx] Clopidogrel Bisulfate [Plavix] 75 mg PO DAILY #30 tablet 07/26/16 [Rx] Acetylcysteine 10% 2 ml IH [id number] inhsol 09/03/16 [Rx] Citalopram [CeleXA] 20 mg PO DAILY tablet 09/03/16 [Rx] Gabapentin [Neurontin] 300 mg PO DAILY #0 09/03/16 [Rx] Ipratropium Neb [Atrovent Neb] 0.5 mg IH [id number] inhsol 09/03/16 [Rx] Levalbuterol Neb [Xopenex Neb] 0.63 mg IH [id number] vial.neb 09/03/16 [Rx] Calcium Carbonate/Vitamin D3 [Calcium 500 + Vit D Caplet] 1 each PO BID [History] Furosemide [Lasix] 40 mg PO BID 12/15/16 [History] Insulin ASPART [NovoLOG] 20 unit SQ TID 12/15/16 [History] Insulin Glargine,Hum.rec.anlog [Lantus Solostar] 85 unit SQ DAILY 12/15/16 [ History] Magic Mouthwash 15 ml PO QID PRN 12/15/16 [History] Meclizine [Antivert] 25 mg PO TID PRN 12/15/16 [History] Mupirocin [Bactroban Oint] 1 appl TP BID PRN 12/15/16 [History] PredniSONE [Derick] 15 mg PO DAILY 12/15/16 [History] Ipratropium/Albuterol Neb [Duoneb] 3 ml IH [id number] PRN #0 inhsol 12/17/16 [Rx] Isosorbide MONOnitrate (24 HR) [Imdur] 30 mg PO DAILY #0 tab.er.24h 12/17/16 [Rx ] Metoprolol Succinate 75 mg PO DAILY #0 12/17/16 [Rx] Allergies/Adverse Reactions: Allergies cholecalciferol (vitamin D3) Allergy (Verified 12/15/16 09:39) Difficulty Breathing NSAIDS (Non-Steroidal Anti-Inflamma Allergy (Verified 12/15/16 09:39) Difficulty Breathing Procedures/tests Complete & Pending: Procedures Performed prior 72 hours Category Date Time Status ECG 12 lead ECG [ECG] Routine Y 12/14/16 21:36 Completed ECG 12 lead ECG [ECG] Routine Y 12/15/16 05:58 Completed EV carotid duplex imaging BI Routine Y 12/15/16 05:58 Completed Date of admission: 12/15/16 01:16 Primary care physician: PCP [place] Consults: 12/15/16 06:01 Consult to Physician [CONS] Routine Consulting Provider: Angel Santoyo Reason for Consult: CKD Call Completed: No Discharging clinician: Amadeo Alvarez Anticipated date of discharge: 12/17/16 - Patient Status Disposition: Home, Self-Care Condition: Good Functional capacity at discharge: independent ambulation Overall status at discharge: patient is back to baseline - Discharge Instructions Follow Up With: [facility] [Outside] (Please call your [place] PCP home base provider as soon as you arrive home from discharge and let them know your were just discharged from the hospital.) - Diet and Activity Activity: resume usual activities as tolerated, wear oxygen at all times Diet: diabetic diet, low fat, low cholesterol, low salt diet Interval History: See below Hospital course: Mr. Tang is a 66-year-old M with PMH of CKD IV, DM, HTN, CHFpEF, lung cancer status post lobectomy, chronic respiratory failure on home O2. He was transferred from the [place] 10/14 for complains of gastroenteritis, and pre- syncope His orthostatic vital signs were significant for orthostatic hypotension His renal function was at baseline and has remained stable He is seen at bedside this morning, ambulatory withut dizziness and orthostatic vital signs are better He received gentle boluses of IVF due to his CHF His blood pressure medications were give in half the doses at home Today his blood pressure has started to increase back to normal values Gastroenteritis has resolved CXR done revealed no new findings He has been afebrile, no leukocytosis, no signs of sepsis or SIRS He will be discharged home on current dose of antihypertensives He has been educated about the adjustment to his medications and necessity to follow up soon with his PCP, [employer] [facility] [employer] to ensure stability of his BP and or titrate up He verbalized understanding His other chronic conditions remained stable Follow up with PCP He has received the FLu shot - Time Spent with Patient Total time spent providing and/or coordinating discharge services: Less than 30 minutes - Constitutional Vitals: Temp Pulse Resp BP Pulse Ox 98 F 90 18 162/98 96 12/17/16 11:07 12/17/16 11:07 12/17/16 11:07 12/17/16 11:07 12/17/16 11:07 General appearance: Present: cooperative, A&O X 3, pleasant, no acute distress, answers questions appropriately - Head Head exam: Present: atraumatic, normocephalic - Eye Eye exam: Present: PERRL, conjuntiva pink, sclera anicteric Pupils: Present: PERRL - Neck Neck exam general surgery: Present: supple, trachea midline. Absent: lymphadenopathy - Respiratory Respiratory exam: Present: CTAB. Absent: accessory muscle use, rales, rhonchi, wheezes - Cardiovascular Cardiovascular exam: Present: RRR, +S1, +S2. Absent: diastolic murmur, gallop, rubs, systolic murmur - GI/Abdominal GI/Abdominal exam: Present: normal bowel sounds, soft, no peritoneal signs. Absent: distended, tenderness - Extremities Exam Extremities exam: Present: warm, radial pulses palpable and symetrical. Absent : calf tenderness, cyanotic, pedal edema - Neurological Exam Neurological exam: Present: CN II-XII intact, oriented X3, no focal deficits. Absent: pronater drift, facial droop, speech deficit - Skin Skin exam: Present: dry, intact
[2016-12-17] MEDS ORDERED: Insulin DETEMIR 100 UNIT/ML X5UNITS SQ SCH (21:00)
== END 2016-12-17 17:00 | disposition home or self-care (01) | DRG 312 ==
LOC: EMEROO 21:12 → 2ANU 12-15 01:16 → SUATTDRO 12-15 01:16 → 2ANU 12-15 01:28
PROVIDERS: ADMIT Internal Medicine; ATTEND Internal Medicine